=== PATIENT | male | born 1995 | race African-American/Black ===

== ENCOUNTER 2025-03-20 13:21 | Emergency (ER) | payer BC | END 2025-03-20 15:27 | disposition home or self-care (01) | LOC: CSHERS 13:21 | DX: S63.614A Unspecified sprain of right ring finger, initial encounter (principal); S63.612A Unspecified sprain of right middle finger, initial encounter; S63.615A Unspecified sprain of left ring finger, initial encounter; F17.210 Nicotine dependence, cigarettes, uncomplicated; X50.3XXA Overexertion from repetitive movements, initial encounter | CPT/HCPCS: 99283 ==